=== PATIENT | male | born 1995 | race Caucasian/White ===

== ENCOUNTER 2023-07-17 01:17 | Emergency (ER) | payer SELFPAY ==
[~2023-07-17] VITALS: Ht 182.9 cm; Wt 72.6 kg
[2023-07-17 01:23] VITALS: BP 125/70; PULSE 72; RESP 16; TEMP 98.5; O2SAT 99
[2023-07-17 03:49] VITALS: BP 125/70; PULSE 72; RESP 16; TEMP 98.5; O2SAT 99
== END 2023-07-17 03:49 ==
LOC: MED 01:17
DX: I10 Essential (primary) hypertension (principal); Z02.89 Encounter for other administrative examinations
CPT/HCPCS: 99283